=== PATIENT | male | born 1975 | race Caucasian/White ===

== ENCOUNTER 2016-12-03 03:50 | Emergency (ER) | payer BC ==
[~2016-12-03] VITALS: Ht 180.3 cm; Wt 86.2 kg
--- NOTE | ~2016-12-03 | CR195 ---
[facility]. [facility] A Service of [facility] & [facility] RADIOLOGY TEXT RESULTS PATIENT: TIFFANIE YUSUF LOCATION: SED : 79 UNIT #: [id number] AGE: [address]: Med Sanon MD SEX: M ORDER DR: [id number] [place] [id number] E MR#: [id number] Acc #: [id number] NAME: TIFFANIE YUSUF. : 1975 SEX: M STUDY DATE/TIME: 12/03/2016 4:47 UNIT: SED ROOM: STUDY DESCRIPTION: CR Neck Soft Tissue Attending Physician: Med Sanon M.D. Ordering Physician: Med Sanon M.D. MEDICAL IMAGING REPORT This report is preliminary unless electronic signature is present. EXAM Neck soft tissues series INDICATIONS Sensation of something stuck in the throat today. PROCEDURE Two views of the neck utilizing soft tissue technique. COMPARISON None. FINDINGS Prevertebral soft tissues unremarkable. No radiodense foreign body in the airway or along the course of cervical esophagus. IMPRESSION No acute findings or radiodense foreign body. Dictated by... Amadou Forbes M.D. THIS IS AN ELECTRONICALLY VERIFIED REPORT Amadou Forbes M.D. at 12/03/2016 9:52 PM EED/aida TD: 12/03/2016 12:07 JOB #: [id number] MEDICAL IMAGING REPORT Page 1 of 1
[~2016-12-03 03:50] MED LIST: FAMOTIDINE PO; NO MEDICATIONS; ROBAXIN500 MG PO; VOLTAREN75 MG PO
[2016-12-03] MEDS ORDERED: ANTIBIOTIC MED PO (04:00)
[2016-12-03] MEDS ORDERED: PAIN MED (04:00)
== END 2016-12-03 05:07 | disposition home or self-care (01) ==
LOC: SED 03:50
DX: R13.10 Dysphagia, unspecified (principal); K21.9 Gastro-esophageal reflux disease without esophagitis; F17.200 Nicotine dependence, unspecified, uncomplicated; Z79.899 Other long term (current) drug therapy
CPT/HCPCS: 70360; 99284